=== PATIENT | male | born 1955 | race Caucasian/White ===

== ENCOUNTER 2020-03-27 17:13 | Inpatient (IN) | payer OTHER, SELFPAY ==
[~2020-03-27] VITALS: Ht 180.3 cm; Wt 90.8 kg
--- NOTE | 2020-03-27 17:38 | NUR ---
TASK RN: SOB FOR SEVERAL WEEKS. STATES HE HAS NOT TAKEN ANY MEDS FOR MONTHS. PEDAL EDEMA AND EXERTIONAL SOB NOTED. SPEAKING IN FULL SENTENCES. XRAY AT BEDSIDE.
--- NOTE | 2020-03-27 17:57 | NUR ---
RECEIVED BEDSIDE REPORT FROM ARTIS DIETRICH. PIV ESTABLISHED.
[2020-03-27 18:16] LABS: BASOPHILS # (AUTO) 0.03 x10^3/uL (0-0.1); BASOPHILS % (AUTO) 1 % (0-1); EOSINOPHILS # (AUTO) 0.13 x10^3/uL (0-0.4); EOSINOPHILS % (AUTO) 2 % (1-7); LYMPHOCYTES # (AUTO) 0.87 x10^3/uL (1-3.4); LYMPHOCYTES % (AUTO) 15 % (22-44); MD NO; MEAN CORPUSCULAR HEMOGLOBIN 31.7 pg (27.5-34.5); MEAN CORPUSCULAR VOLUME 96.1 fL (81-97); MEAN PLATELET VOLUME 8.3 fL (7.4-10.4); MONOCYTES # (AUTO) 0.47 x10^3/uL (0.2-0.8); MONOCYTES % (AUTO) 8 % (2-9); NEUTROPHILS # (AUTO) 4.39 x10^3/uL (1.8-6.8); NEUTROPHILS % (AUTO) 75 % (42-75); PLATELET COUNT 121 x10^3/uL (130-400); RED BLOOD COUNT 3.46 x10^6/uL (4.38-5.82)
[2020-03-27 18:22] LABS: ALANINE AMINOTRANSFERASE 59 U/L (12-78); ALBUMIN 2.7 g/dL (3.4-5.0); ANION GAP 8 mmol/L (5-15); CHLORIDE 119 mmol/L (98-107); CREATININE 2.82 mg/dL (0.7-1.3)
[2020-03-27 18:25] LABS: ALKALINE PHOSPHATASE 82 U/L (45-117); BILIRUBIN,TOTAL 0.5 mg/dL (0.2-1.0); TOTAL PROTEIN 6.5 g/dL (6.4-8.2); TROPONIN I 0.079 ng/mL (0.000-0.045)
--- NOTE | 2020-03-27 18:43 | NUR ---
PT RESTING ON GURNEY. ELAINE. PT STATES "I NEVER CALLED A DR TO GET MY MEDS REFILLED." NO NEEDS REQUESTED AT THIS TIME.
--- NOTE | 2020-03-27 18:53 | NUR ---
BEDSIDE REPORT TO ARTIS SANFORD
[2020-03-27] MEDS ORDERED: FUROSEMIDE 40 MG/4 ML IV ONE (19:30)
[2020-03-27] MEDS ORDERED: FUROSEMIDE 20 MG/2 ML ONE (19:35)
--- NOTE | 2020-03-27 20:39 | NUR ---
PATIENT ABLE TO USE BEDSIDE URINAL, TOLERATED WELL. 350ML CLEAR YELLOW URINE OUT AFTER LASIX ADMINISTRATION.
--- NOTE | 2020-03-27 21:14 | NUR ---
PATIENT URINATED 500MLS CLEAR YELLOW URINE
--- NOTE | 2020-03-27 21:15 | NUR ---
PATIENT UPDATED ON PLAN OF CARE. NO NOTED ACUTE DISTRESS. PATIENT TOLERATING INTERVENTIONS WELL.
[2020-03-27 22:08] VITALS: BP 159/105
[2020-03-28] MEDS ORDERED: hydrALAzine 20 MG/ML, 1ML IVPush PRN
[2020-03-28] MEDS ORDERED: ACETAMINOPHEN 325 MG TABLET PO PRN
[2020-03-28] MEDS ORDERED: ONDANSETRON 2MG/ML, 2ML IVPush PRN
[2020-03-28 01:12] VITALS: BP 165/104
[2020-03-28] MEDS: FUROSEMIDE 20 MG/2 ML IV SCH ×2 (01:14→08:05)
[2020-03-28] MEDS: HEPARIN 5,000 UNITS/ML, 1ML SQ SCH ×3 (01:14→16:18)
[2020-03-28 01:55] LABS: TROPONIN I 0.092 ng/mL (0.000-0.045)
[2020-03-28 05:18] LABS: BASOPHILS # (AUTO) 0.04 x10^3/uL (0-0.1); BASOPHILS % (AUTO) 1 % (0-1); EOSINOPHILS # (AUTO) 0.17 x10^3/uL (0-0.4); EOSINOPHILS % (AUTO) 3 % (1-7); LYMPHOCYTES % (AUTO) 13 % (22-44); MD NO; MEAN CORPUSCULAR HEMOGLOBIN 31.7 pg (27.5-34.5); MEAN CORPUSCULAR HGB CONC 33.1 g/dL (33.2-36.2); MEAN CORPUSCULAR VOLUME 95.8 fL (81-97); MEAN PLATELET VOLUME 8.1 fL (7.4-10.4); MONOCYTES # (AUTO) 0.46 x10^3/uL (0.2-0.8); MONOCYTES % (AUTO) 8 % (2-9); NEUTROPHILS # (AUTO) 4.48 x10^3/uL (1.8-6.8); NEUTROPHILS % (AUTO) 75 % (42-75); PLATELET COUNT 110 x10^3/uL (130-400); RED BLOOD COUNT 3.39 x10^6/uL (4.38-5.82); RED CELL DISTRIBUTION WIDTH 14.6 % (9.4-14.8)
[2020-03-28 05:29] LABS: CALCIUM 7.8 mg/dL (8.5-10.1); CHLORIDE 120 mmol/L (98-107)
[2020-03-28 05:35] LABS: ALANINE AMINOTRANSFERASE 56 U/L (12-78); ALBUMIN 2.5 g/dL (3.4-5.0); ALKALINE PHOSPHATASE 61 U/L (45-117); ANION GAP 12 mmol/L (5-15); CHOL/HDL RATIO 1.9; CHOLESTEROL, TOTAL 119 mg/dL (140-239); CREATININE 2.61 mg/dL (0.7-1.3); HDL CHOL % 53 % (26-37); HDL CHOLESTEROL (DIRECT) 63 mg/dL (40-60); LDL CHOLESTEROL,CALCULATED 43 mg/dL (54-169); LDL/HDL RATIO 0.7 (0.5-3.0); TOTAL PROTEIN 5.9 g/dL (6.4-8.2); TRIGLYCERIDES 64 mg/dL (50-200); TROPONIN I 0.102 ng/mL (0.000-0.045); VLDL CHOLESTEROL 13 mg/dL (0-25)
[2020-03-28 05:42] LABS: BILIRUBIN,TOTAL 0.5 mg/dL (0.2-1.0)
[2020-03-28 08:02] VITALS: BP 158/65
[2020-03-28] MEDS: SENNA/DOCUSATE TABLET PO SCH (08:05)
[2020-03-28] MEDS ORDERED: DEXTROSE 50%, 50ML SYRINGE IVPush PRN (09:00)
[2020-03-28] MEDS ORDERED: GLUCAGON 1 MG IM PRN (09:00)
[2020-03-28] MEDS ORDERED: DEXTROSE 4 GM TAB.CHEW PO PRN (09:00)
[2020-03-28] MEDS: SODIUM CHLORIDE FLUSH 10ML SYR IVF SCH ×2 (09:00→20:14)
[2020-03-28 12:50] VITALS: BP 127/87
[2020-03-28] MEDS ORDERED: GLIP10TA13 PO (15:01)
[2020-03-28] MEDS ORDERED: CARV12.52 PO (15:01)
[2020-03-28] MEDS ORDERED: LISI5TAB7 PO (15:01)
[2020-03-28] MEDS ORDERED: FURO20TA3 PO (15:01)
[2020-03-28] MEDS: INSULIN LISPRO 100 UNITS/ML, PEN SQ-INSULIN SCH ×2 (16:00→20:15)
[2020-03-28] MEDS: FUROSEMIDE 40 MG/4 ML IV SCH (16:18)
[2020-03-28 19:22] VITALS: BP 146/89
[2020-03-29] MEDS: HEPARIN 5,000 UNITS/ML, 1ML SQ SCH ×4 (00:29→23:08)
[2020-03-29 01:43] VITALS: BP 152/98
[2020-03-29 05:41] LABS: BASOPHILS # (AUTO) 0.03 x10^3/uL (0-0.1); BASOPHILS % (AUTO) 1 % (0-1); EOSINOPHILS # (AUTO) 0.17 x10^3/uL (0-0.4); EOSINOPHILS % (AUTO) 4 % (1-7); LYMPHOCYTES # (AUTO) 0.91 x10^3/uL (1-3.4); LYMPHOCYTES % (AUTO) 20 % (22-44); MD NO; MEAN CORPUSCULAR HGB CONC 33.2 g/dL (33.2-36.2); MEAN CORPUSCULAR VOLUME 96.4 fL (81-97); MONOCYTES # (AUTO) 0.41 x10^3/uL (0.2-0.8); MONOCYTES % (AUTO) 9 % (2-9); NEUTROPHILS # (AUTO) 3.15 x10^3/uL (1.8-6.8); NEUTROPHILS % (AUTO) 68 % (42-75); PLATELET COUNT 109 x10^3/uL (130-400); RED BLOOD COUNT 3.32 x10^6/uL (4.38-5.82); RED CELL DISTRIBUTION WIDTH 15.1 % (9.4-14.8)
[2020-03-29 05:46] LABS: CHLORIDE 117 mmol/L (98-107)
[2020-03-29 05:52] LABS: ALANINE AMINOTRANSFERASE 55 U/L (12-78); ALBUMIN 2.4 g/dL (3.4-5.0); ALKALINE PHOSPHATASE 62 U/L (45-117); ANION GAP 11 mmol/L (5-15); BILIRUBIN,TOTAL 0.4 mg/dL (0.2-1.0); CALCIUM 7.8 mg/dL (8.5-10.1); CREATININE 2.81 mg/dL (0.7-1.3)
[2020-03-29] MEDS: INSULIN LISPRO 100 UNITS/ML, PEN SQ-INSULIN SCH ×4 (07:00→20:21)
[2020-03-29 07:43] VITALS: BP 153/97
[2020-03-29] MEDS: FUROSEMIDE 40 MG/4 ML IV SCH ×2 (08:22→15:55)
[2020-03-29] MEDS: SENNA/DOCUSATE TABLET PO SCH (08:22)
[2020-03-29] MEDS: SODIUM BICARBONATE 650 MG TABLET PO SCH ×2 (08:22→20:21)
[2020-03-29] MEDS: CARVEDILOL 6.25 MG TABLET PO SCH ×2 (08:41→16:34)
[2020-03-29] MEDS: SODIUM CHLORIDE FLUSH 10ML SYR IVF SCH ×2 (08:42→20:19)
[2020-03-29 13:12] VITALS: BP 133/83
[2020-03-29 19:06] VITALS: BP 124/85
[2020-03-30 00:41] VITALS: BP 142/74
[2020-03-30] MEDS: CARVEDILOL 6.25 MG TABLET PO SCH ×2 (05:21→17:12)
[2020-03-30] MEDS: ASPIRIN 81 MG TABLET EC PO SCH (05:21)
[2020-03-30 06:53] VITALS: BP 126/87
[2020-03-30] MEDS: HEPARIN 5,000 UNITS/ML, 1ML SQ SCH ×2 (08:02→16:35)
[2020-03-30] MEDS: SODIUM BICARBONATE 650 MG TABLET PO SCH ×2 (08:03→21:11)
[2020-03-30] MEDS: SENNA/DOCUSATE TABLET PO SCH (08:03)
[2020-03-30] MEDS: FUROSEMIDE 40 MG/4 ML IV SCH (08:03)
[2020-03-30] MEDS: SODIUM CHLORIDE FLUSH 10ML SYR IVF SCH ×2 (08:04→21:00)
[2020-03-30] MEDS: INSULIN LISPRO 100 UNITS/ML, PEN SQ-INSULIN SCH ×4 (08:18→21:12)
[2020-03-30 08:23] LABS: ANION GAP 8 mmol/L (5-15); CALCIUM 7.5 mg/dL (8.5-10.1); CHLORIDE 114 mmol/L (98-107)
[2020-03-30 11:38] VITALS: BP 125/83
[2020-03-30 16:48] VITALS: BP 149/102
[2020-03-30 20:02] VITALS: BP 136/97
[2020-03-30] MEDS: TRAZODONE 50MG TABLET PO PRN (21:25)
[2020-03-31] MEDS: HEPARIN 5,000 UNITS/ML, 1ML SQ SCH ×3 (00:12→15:43)
[2020-03-31 00:15] VITALS: BP 141/94
[2020-03-31 05:41] VITALS: BP 137/90
[2020-03-31] MEDS: ASPIRIN 81 MG TABLET EC PO SCH (05:41)
[2020-03-31] MEDS: CARVEDILOL 6.25 MG TABLET PO SCH ×2 (05:42→17:59)
[2020-03-31 06:52] VITALS: BP_SYST 134; BP_SYST 164; BP_DIAS 102; BP_DIAS 90
[2020-03-31] MEDS: INSULIN LISPRO 100 UNITS/ML, PEN SQ-INSULIN SCH ×4 (07:00→20:35)
[2020-03-31] MEDS ORDERED: REGADENOSON 0.4 MG/5 ML SYRINGE ONE (09:00)
[2020-03-31] MEDS: SENNA/DOCUSATE TABLET PO SCH (09:00)
[2020-03-31] MEDS: SODIUM CHLORIDE FLUSH 10ML SYR IVF SCH ×2 (10:09→20:35)
[2020-03-31] MEDS: SODIUM BICARBONATE 650 MG TABLET PO SCH ×2 (10:10→20:43)
[2020-03-31 13:38] VITALS: BP 126/78
[2020-03-31 14:47] LABS: ANION GAP 9 mmol/L (5-15); CALCIUM 7.8 mg/dL (8.5-10.1); CHLORIDE 113 mmol/L (98-107)
[2020-03-31] MEDS: SPIRONOLACTONE 50 MG TABLET PO SCH (15:43)
[2020-03-31 20:25] VITALS: BP 134/88
[2020-03-31] MEDS: ATORVASTATIN 40 MG TABLET PO SCH (20:43)
[2020-04-01] MEDS: HEPARIN 5,000 UNITS/ML, 1ML SQ SCH ×3 (00:20→16:16)
[2020-04-01 01:51] VITALS: BP 134/93
[2020-04-01] MEDS: TRAZODONE 50MG TABLET PO PRN (02:10)
[2020-04-01 05:10] LABS: CHLORIDE 116 mmol/L (98-107)
[2020-04-01 05:21] LABS: ANION GAP 12 mmol/L (5-15); CALCIUM 8.1 mg/dL (8.5-10.1); CREATININE 3.16 mg/dL (0.7-1.3)
[2020-04-01] MEDS: CARVEDILOL 6.25 MG TABLET PO SCH ×2 (05:38→17:40)
[2020-04-01] MEDS: ASPIRIN 81 MG TABLET EC PO SCH (05:38)
[2020-04-01] MEDS: INSULIN LISPRO 100 UNITS/ML, PEN SQ-INSULIN SCH ×4 (07:00→20:36)
[2020-04-01 07:18] VITALS: BP 137/94
[2020-04-01] MEDS: SENNA/DOCUSATE TABLET PO SCH (09:00)
[2020-04-01] MEDS: SPIRONOLACTONE 50 MG TABLET PO SCH (09:05)
[2020-04-01] MEDS: SODIUM BICARBONATE 650 MG TABLET PO SCH ×2 (09:05→20:35)
[2020-04-01] MEDS: SODIUM CHLORIDE FLUSH 10ML SYR IVF SCH ×2 (09:05→20:36)
[2020-04-01] MEDS: FUROSEMIDE 40 MG TABLET PO SCH ×2 (12:17→16:15)
[2020-04-01 14:30] VITALS: BP 128/85
[2020-04-01 19:12] VITALS: BP 141/94
[2020-04-01] MEDS: ATORVASTATIN 40 MG TABLET PO SCH (20:35)
[2020-04-02] VITALS (8 sets, daily range): BP systolic 127–156; BP diastolic 83–99
[2020-04-02] MEDS: HEPARIN 5,000 UNITS/ML, 1ML SQ SCH ×3 (00:47→16:51)
[2020-04-02] MEDS: ASPIRIN 81 MG TABLET EC PO SCH (06:00)
[2020-04-02 06:04] LABS: BASOPHILS # (AUTO) 0.03 x10^3/uL (0-0.1); BASOPHILS % (AUTO) 1 % (0-1); EOSINOPHILS # (AUTO) 0.13 x10^3/uL (0-0.4); EOSINOPHILS % (AUTO) 3 % (1-7); LYMPHOCYTES # (AUTO) 0.76 x10^3/uL (1-3.4); LYMPHOCYTES % (AUTO) 14 % (22-44); MD NO; MEAN CORPUSCULAR HEMOGLOBIN 32.2 pg (27.5-34.5); MEAN CORPUSCULAR HGB CONC 33.7 g/dL (33.2-36.2); MEAN CORPUSCULAR VOLUME 95.4 fL (81-97); MEAN PLATELET VOLUME 8.9 fL (7.4-10.4); MONOCYTES # (AUTO) 0.52 x10^3/uL (0.2-0.8); MONOCYTES % (AUTO) 10 % (2-9); NEUTROPHILS # (AUTO) 3.85 x10^3/uL (1.8-6.8); NEUTROPHILS % (AUTO) 73 % (42-75); PLATELET COUNT 103 x10^3/uL (130-400); RED BLOOD COUNT 3.39 x10^6/uL (4.38-5.82); RED CELL DISTRIBUTION WIDTH 14.3 % (9.4-14.8)
[2020-04-02 06:12] LABS: ALANINE AMINOTRANSFERASE 62 U/L (12-78); ALBUMIN 2.5 g/dL (3.4-5.0); ANION GAP 10 mmol/L (5-15); CHLORIDE 116 mmol/L (98-107); CREATININE 3.16 mg/dL (0.7-1.3)
[2020-04-02 06:14] LABS: ALKALINE PHOSPHATASE 63 U/L (45-117); BILIRUBIN,TOTAL 0.4 mg/dL (0.2-1.0)
[2020-04-02] MEDS: CARVEDILOL 6.25 MG TABLET PO SCH ×2 (06:15→16:54)
[2020-04-02] MEDS: INSULIN LISPRO 100 UNITS/ML, PEN SQ-INSULIN SCH ×4 (07:00→20:33)
[2020-04-02] MEDS: SPIRONOLACTONE 50 MG TABLET PO SCH (08:27)
[2020-04-02] MEDS: ISOSORBIDE DINITRATE 10 MG TABLET PO SCH ×3 (08:27→20:37)
[2020-04-02] MEDS: SENNA/DOCUSATE TABLET PO SCH (08:27)
[2020-04-02] MEDS: SODIUM BICARBONATE 650 MG TABLET PO SCH ×2 (08:27→20:37)
[2020-04-02] MEDS: SODIUM CHLORIDE FLUSH 10ML SYR IVF SCH ×2 (08:28→20:37)
[2020-04-02] MEDS ORDERED: FUROSEMIDE 40 MG/4 ML IV ONE (11:00)
[2020-04-02] MEDS: POTASSIUM CHLORIDE 20 MEQ TAB.ER.PRT PO SCH (16:54)
[2020-04-02] MEDS: ATORVASTATIN 40 MG TABLET PO SCH (20:37)
[2020-04-03] MEDS: HEPARIN 5,000 UNITS/ML, 1ML SQ SCH ×4 (00:01→20:36)
[2020-04-03 01:27] VITALS: BP 140/90
[2020-04-03 05:05] LABS: ANION GAP 6 mmol/L (5-15); CHLORIDE 115 mmol/L (98-107); CREATININE 3.15 mg/dL (0.7-1.3)
[2020-04-03] MEDS: ASPIRIN 81 MG TABLET EC PO SCH (05:38)
[2020-04-03] MEDS: CARVEDILOL 6.25 MG TABLET PO SCH ×2 (05:39→16:53)
[2020-04-03 05:40] VITALS: BP 153/93
[2020-04-03 06:54] VITALS: BP 144/87
[2020-04-03] MEDS: INSULIN LISPRO 100 UNITS/ML, PEN SQ-INSULIN SCH ×4 (07:39→20:36)
[2020-04-03] MEDS: POTASSIUM CHLORIDE 20 MEQ TAB.ER.PRT PO SCH (08:23)
[2020-04-03] MEDS: SODIUM BICARBONATE 650 MG TABLET PO SCH ×2 (08:23→20:36)
[2020-04-03] MEDS: SPIRONOLACTONE 50 MG TABLET PO SCH (08:24)
[2020-04-03] MEDS: ISOSORBIDE DINITRATE 10 MG TABLET PO SCH ×3 (08:24→20:36)
[2020-04-03] MEDS: SENNA/DOCUSATE TABLET PO SCH (08:24)
[2020-04-03] MEDS: SODIUM CHLORIDE FLUSH 10ML SYR IVF SCH ×2 (08:24→20:35)
[2020-04-03] MEDS ORDERED: FUROSEMIDE 40 MG/4 ML IV ONE (09:00)
[2020-04-03 12:10] VITALS: BP 128/79
[2020-04-03 19:54] VITALS: BP 131/88
[2020-04-03] MEDS: ATORVASTATIN 40 MG TABLET PO SCH (20:36)
[2020-04-04 01:27] VITALS: BP 137/90
[2020-04-04] MEDS: TRAZODONE 50MG TABLET PO PRN (01:40)
[2020-04-04 05:24] LABS: ANION GAP 7 mmol/L (5-15); CALCIUM 7.9 mg/dL (8.5-10.1); CHLORIDE 114 mmol/L (98-107); CREATININE 3.19 mg/dL (0.7-1.3)
[2020-04-04] MEDS: ASPIRIN 81 MG TABLET EC PO SCH (05:56)
[2020-04-04] MEDS: CARVEDILOL 6.25 MG TABLET PO SCH (05:57)
[2020-04-04 06:47] VITALS: BP 136/83
[2020-04-04] MEDS: INSULIN LISPRO 100 UNITS/ML, PEN SQ-INSULIN SCH ×2 (07:06→11:14)
[2020-04-04] MEDS: HEPARIN 5,000 UNITS/ML, 1ML SQ SCH (08:32)
[2020-04-04] MEDS: SPIRONOLACTONE 50 MG TABLET PO SCH (08:32)
[2020-04-04] MEDS: SODIUM BICARBONATE 650 MG TABLET PO SCH (08:32)
[2020-04-04] MEDS: ISOSORBIDE DINITRATE 10 MG TABLET PO SCH (08:32)
[2020-04-04] MEDS: SENNA/DOCUSATE TABLET PO SCH (08:33)
[2020-04-04] MEDS: SODIUM CHLORIDE FLUSH 10ML SYR IVF SCH (08:33)
[2020-04-04] MEDS ORDERED: FURO40TA6 PO (10:23)
[2020-04-04] MEDS ORDERED: ATOR40TA78 PO (10:23)
[2020-04-04] MEDS ORDERED: SPIR50TA PO (10:23)
[2020-04-04] MEDS ORDERED: ASPI81TA45 PO (10:23)
[2020-04-04] MEDS ORDERED: ISOS10TA2 PO (10:23)
[2020-04-04] MEDS ORDERED: CARV6.2512 PO (10:23)
[2020-04-04] MEDS ORDERED: SODI650T PO (10:24)
== END 2020-04-04 12:03 | disposition still patient (30) | DRG 682 ==
LOC: ED 20:08 → 4NW 23:37 → 5SO 03-30 20:19 → DCLOUNGE 04-04 11:35
PROVIDERS: ADMIT Family Medicine; ATTEND Hospitalist
DX: N17.0 Acute kidney failure with tubular necrosis (principal); I50.23 Acute on chronic systolic (congestive) heart failure; J18.9 Pneumonia, unspecified organism; E44.1 Mild protein-calorie malnutrition; I13.0 Hypertensive heart and chronic kidney disease with heart failure and stage 1 through stage 4 chronic kidney disease, or unspecified chronic kidney disease; I24.8 Other forms of acute ischemic heart disease; B18.2 Chronic viral hepatitis C; D64.9 Anemia, unspecified; D69.6 Thrombocytopenia, unspecified; E11.22 Type 2 diabetes mellitus with diabetic chronic kidney disease; E11.40 Type 2 diabetes mellitus with diabetic neuropathy, unspecified; E78.5 Hyperlipidemia, unspecified; F17.200 Nicotine dependence, unspecified, uncomplicated; I08.1 Rheumatic disorders of both mitral and tricuspid valves; I25.10 Atherosclerotic heart disease of native coronary artery without angina pectoris; I25.5 Ischemic cardiomyopathy; I27.20 Pulmonary hypertension, unspecified; Z20.828 Contact with and (suspected) exposure to other viral communicable diseases; N18.9 Chronic kidney disease, unspecified; Z79.84 Long term (current) use of oral hypoglycemic drugs; Z79.899 Other long term (current) drug therapy; Z82.49 Family history of ischemic heart disease and other diseases of the circulatory system; Z91.14 Patient's other noncompliance with medication regimen; Z91.19 Patient's noncompliance with other medical treatment and regimen; Z68.27 Body mass index [BMI] 27.0-27.9, adult
CPT/HCPCS: 36415; 71045; 78452; 80048; 80053; 80061; 82306; 82962; 83036; 83735; 83880; 83970; 84100; 84145; 84484; 85025; 93005; 93017; 93308; 93321; 93325; G0378; J1644; J1940; J2405; J2785; A9502; C9898; J0360; J1815; U0001-CS